=== PATIENT | female | born 1950 | race Two or more races ===

== ENCOUNTER 2018-12-22 06:28 | Inpatient (IN) | payer MEDICARE, MEDICAID ==
[~2018-12-22] VITALS: Ht 157.5 cm; Wt 48.1 kg
[~2018-12-22 06:28] MED LIST: AMLO10TA8 PO; ASPI81TA45 PO; BENZ-17 PO; CHOL500062 PO; FAMO20TA7 PO; GLUC1TAB27 PO; LISI40TA PO; OMEP40CA6 PO; POTA10TA5 PO
[2018-12-22] MEDS ORDERED: FUROSEMIDE 40 MG/4 ML IVP ONE (06:30)
[2018-12-22] MEDS ORDERED: SODIUM CHLORIDE FLUSH 10ML SYR IVF ONE (06:30)
[2018-12-22] MEDS ORDERED: LORazepam 2 MG/ML, 1ML ONE ×2 (06:34→06:44)
[2018-12-22] MEDS ORDERED: CARV-39 PO (06:40)
[2018-12-22] MEDS ORDERED: HYDR-3343 PO (06:40)
[2018-12-22] MEDS ORDERED: insulin (06:40)
[2018-12-22] MEDS ORDERED: CLOP75TA PO (06:40)
[2018-12-22] MEDS ORDERED: FURO-93 PO (06:40)
[2018-12-22] MEDS ORDERED: ASPI-515 PO (06:40)
[2018-12-22] MEDS ORDERED: ROSU40TA PO (06:40)
[2018-12-22] MEDS ORDERED: MAGN400T7 PO (06:40)
[2018-12-22] MEDS ORDERED: PLEASE ENTER ALLERGIES MC SCH (07:00)
[2018-12-22] MEDS ORDERED: FUROSEMIDE 40 MG/4 ML IV ONE (07:00)
[2018-12-22] MEDS ORDERED: NITROGLYCERIN/D5W PMX 250 ML IV PRN (07:00)
[2018-12-22] MEDS ORDERED: LORazepam 2 MG/ML, 1ML IVPush ONE (07:00)
--- NOTE | 2018-12-22 07:01 | NUR ---
ASSUME CARE, PT CURRENTLY SITTING UP ON CPAP, RESPIRATIONS SLOWING DOWN, BP IMPROVING, PT HAD SEVERE RESPIRTORY DISTRESS ON ARRIVAL. PER HOLD NITRO DRIP WILL ADMINISTER LASIX. RT AT BEDSIDE
[2018-12-22] MEDS ORDERED: FUROSEMIDE 40 MG/4 ML ONE (07:04)
[2018-12-22 07:05] LABS: BASOPHILS # (AUTO) 0.03 x10^3/uL (0-0.1); BASOPHILS % (AUTO) 0 % (0-1); EOSINOPHILS # (AUTO) 0.05 x10^3/uL (0-0.4); EOSINOPHILS % (AUTO) 1 % (1-7); LYMPHOCYTES # (AUTO) 2.57 x10^3/uL (1-3.4); LYMPHOCYTES % (AUTO) 31 % (22-44); MD NO; MEAN CORPUSCULAR HEMOGLOBIN 30.7 pg (27.0-34.8); MEAN CORPUSCULAR HGB CONC 33.4 g/dL (32.4-35.8); MEAN CORPUSCULAR VOLUME 91.9 fL (80-100); MEAN PLATELET VOLUME 9.8 fL (7.4-10.4); MONOCYTES # (AUTO) 0.32 x10^3/uL (0.2-0.8); MONOCYTES % (AUTO) 4 % (2-9); NEUTROPHILS # (AUTO) 5.24 x10^3/uL (1.8-6.8); NEUTROPHILS % (AUTO) 64 % (42-75); PLATELET COUNT 289 x10^3/uL (130-400); RED BLOOD COUNT 3.27 x10^6/uL (3.82-5.3); RED CELL DISTRIBUTION WIDTH 17.5 % (9.6-15.2)
[2018-12-22 07:07] LABS: ALANINE AMINOTRANSFERASE 70 U/L (12-78); ALBUMIN 3.1 g/dL (3.4-5.0); ANION GAP 8 mmol/L (5-15); CALCIUM 8.3 mg/dL (8.5-10.1); CHLORIDE 105 mmol/L (98-107); CREATININE 3.21 mg/dL (0.55-1.02); INTERNATIONAL NORMALIZED RATIO 1.08 (0.93-1.1); PROTHROMBIN TIME 11.3 Seconds (9.6-11.5)
[2018-12-22 07:12] LABS: ALKALINE PHOSPHATASE 153 U/L (45-117); BILIRUBIN,TOTAL 0.1 mg/dL (0.2-1.0); TOTAL PROTEIN 7.7 g/dL (6.4-8.2)
--- NOTE | 2018-12-22 08:23 | NUR ---
f/c inserted to gravity, yellow light urine draining, pt cont to improve with their resp rate
--- NOTE | 2018-12-22 12:04 | NUR ---
Task RN - Pt resting on gurney. Tollerating CPAP at this time. CP monitors remain in place. Siderails up x 2. Call light in reach. Family at bedside. All concerns adressed.
[2018-12-22] MEDS ORDERED: HEPARIN 5,000 UNITS/ML, 1ML IV ONE (15:30)
[2018-12-22] MEDS ORDERED: ACETAMINOPHEN 325 MG TABLET PO PRN (15:30)
[2018-12-22] MEDS ORDERED: morphine SULFATE 10 MG/ML, 1ML IVPush PRN (15:30)
[2018-12-22] MEDS ORDERED: NITROGLYCERIN 0.4 MG BOTTLE (25 TABS) SL PRN (15:30)
[2018-12-22] MEDS ORDERED: ONDANSETRON 2MG/ML, 2ML IVPush PRN (15:30)
[2018-12-22] MEDS: FUROSEMIDE 40 MG/4 ML IV SCH (15:59)
[2018-12-22] MEDS: HEPARIN 25,000 UNITS/500ML PMX 500 ML IV PRN (16:06)
[2018-12-22] MEDS ORDERED: ISOS60TA36 PO (16:14)
[2018-12-22] MEDS ORDERED: INSU100I18 SQ-INSULIN (16:21)
[2018-12-22] MEDS ORDERED: INSU100I13 SQ-INSULIN (16:21)
[2018-12-22] MEDS ORDERED: ALBUTEROL SULFATE 2.5 MG/3 ML NPPB PRN (17:30)
[2018-12-22 18:46] LABS: MICROSCOPIC AUTO
[2018-12-22 18:48] LABS: CULTURE INDICATED? NO
[2018-12-22 18:50] LABS: CHLORIDE,URINE RANDOM 113 mmol/L; POTASSIUM,URINE RANDOM 23 mmol/L; SODIUM,URINE RANDOM 112 mmol/L
[2018-12-22] MEDS: CARVEDILOL 25 MG TABLET PO SCH (20:25)
[2018-12-22] MEDS: (Rosuvastatin Calcium** (Crestor**) 40 MG) PO SCH (21:00)
[2018-12-22] MEDS: HEPARIN 5,000 UNITS/ML, 1ML IV PRN (22:53)
[2018-12-23 04:00] VITALS: BP 119/43
[2018-12-23 05:27] LABS: BASOPHILS # (AUTO) 0.04 x10^3/uL (0-0.1); BASOPHILS % (AUTO) 1 % (0-1); EOSINOPHILS # (AUTO) 0.17 x10^3/uL (0-0.4); EOSINOPHILS % (AUTO) 2 % (1-7); LYMPHOCYTES # (AUTO) 3.44 x10^3/uL (1-3.4); LYMPHOCYTES % (AUTO) 49 % (22-44); MD NO; MEAN CORPUSCULAR HEMOGLOBIN 30.8 pg (27.0-34.8); MEAN CORPUSCULAR HGB CONC 33.2 g/dL (32.4-35.8); MEAN CORPUSCULAR VOLUME 92.7 fL (80-100); MONOCYTES % (AUTO) 8 % (2-9); NEUTROPHILS # (AUTO) 2.85 x10^3/uL (1.8-6.8); NEUTROPHILS % (AUTO) 40 % (42-75); PLATELET COUNT 229 x10^3/uL (130-400); RED BLOOD COUNT 2.67 x10^6/uL (3.82-5.3); RED CELL DISTRIBUTION WIDTH 17.4 % (9.6-15.2)
[2018-12-23 05:34] LABS: CHLORIDE 107 mmol/L (98-107)
[2018-12-23 05:44] LABS: ALANINE AMINOTRANSFERASE 50 U/L (12-78); ALBUMIN 2.6 g/dL (3.4-5.0); ALKALINE PHOSPHATASE 92 U/L (45-117); ANION GAP 7 mmol/L (5-15); BILIRUBIN,TOTAL 0.3 mg/dL (0.2-1.0); CALCIUM 8.2 mg/dL (8.5-10.1); CHOL/HDL RATIO 2.6; CHOLESTEROL, TOTAL 138 mg/dL (140-239); CREATININE 2.81 mg/dL (0.55-1.02); HDL CHOL % 39 % (28-40); HDL CHOLESTEROL (DIRECT) 54 mg/dL (40-60); LDL CHOLESTEROL,CALCULATED 57 mg/dL (54-169); TOTAL PROTEIN 6.2 g/dL (6.4-8.2); TRIGLYCERIDES 137 mg/dL (50-200); VLDL CHOLESTEROL 27 mg/dL (0-25)
[2018-12-23 05:45] LABS: LDL/HDL RATIO 1.1 (0.5-3.0); THYROID STIMULATING HORMONE 0.645 mIU/L (0.358-3.740)
[2018-12-23] MEDS ORDERED: POTASSIUM CHLORIDE 40 MEQ in SODIUM CHLORIDE 0.9% 500 ML IV ONE (07:00)
[2018-12-23] MEDS: FUROSEMIDE 40 MG/4 ML IV SCH ×2 (07:17→17:56)
[2018-12-23] MEDS: MAGNESIUM OXIDE 400 MG TABLET PO SCH (07:51)
[2018-12-23] MEDS: ASPIRIN 81 MG TABLET EC PO SCH (07:51)
[2018-12-23] MEDS: CARVEDILOL 25 MG TABLET PO SCH ×2 (07:51→20:36)
[2018-12-23] MEDS: CLOPIDOGREL 75 MG TABLET PO SCH (07:52)
[2018-12-23] MEDS ORDERED: AMLODIPINE 10 MG TAB PO SCH (09:00)
[2018-12-23] MEDS ORDERED: ISOSORBIDE MONONITRATE ER 30 MG TABLET PO SCH (11:00)
[2018-12-23] MEDS ORDERED: DEXTROSE 4 GM TAB.CHEW PO PRN (12:00)
[2018-12-23] MEDS ORDERED: GLUCAGON 1 MG IM PRN (12:00)
[2018-12-23] MEDS ORDERED: DEXTROSE 50%, 50ML SYRINGE IVPush PRN (12:00)
[2018-12-23 12:13] VITALS: BP 115/65
[2018-12-23 17:55] VITALS: BP 110/55
[2018-12-23] MEDS: POTASSIUM CHLORIDE 20 MEQ TAB.ER.PRT PO SCH ×2 (17:56→17:57)
[2018-12-23] MEDS: INSULIN LISPRO 100 UNITS/ML, PEN SQ-INSULIN SCH ×2 (17:57→20:37)
[2018-12-23 18:39] VITALS: BP 104/60
[2018-12-23] MEDS: SODIUM CHLORIDE FLUSH 10ML SYR IVF SCH (20:37)
[2018-12-23] MEDS: (Rosuvastatin Calcium** (Crestor**) 40 MG) PO SCH (20:37)
[2018-12-23] MEDS: HEPARIN 25,000 UNITS/500ML PMX 500 ML IV PRN (22:31)
[2018-12-24 00:48] VITALS: BP 123/66
[2018-12-24 05:52] LABS: BASOPHILS # (AUTO) 0.04 x10^3/uL (0-0.1); BASOPHILS % (AUTO) 1 % (0-1); EOSINOPHILS # (AUTO) 0.11 x10^3/uL (0-0.4); EOSINOPHILS % (AUTO) 1 % (1-7); LYMPHOCYTES # (AUTO) 3.71 x10^3/uL (1-3.4); LYMPHOCYTES % (AUTO) 45 % (22-44); MD NO; MEAN CORPUSCULAR HEMOGLOBIN 31.1 pg (27.0-34.8); MEAN CORPUSCULAR HGB CONC 34.1 g/dL (32.4-35.8); MEAN CORPUSCULAR VOLUME 91.3 fL (80-100); MEAN PLATELET VOLUME 10.4 fL (7.4-10.4); MONOCYTES # (AUTO) 0.57 x10^3/uL (0.2-0.8); MONOCYTES % (AUTO) 7 % (2-9); NEUTROPHILS # (AUTO) 3.75 x10^3/uL (1.8-6.8); NEUTROPHILS % (AUTO) 46 % (42-75); PLATELET COUNT 231 x10^3/uL (130-400); RED BLOOD COUNT 2.77 x10^6/uL (3.82-5.3); RED CELL DISTRIBUTION WIDTH 17.4 % (9.6-15.2)
[2018-12-24 05:57] LABS: CHLORIDE 105 mmol/L (98-107)
[2018-12-24 06:02] LABS: ANION GAP 7 mmol/L (5-15); CALCIUM 8.6 mg/dL (8.5-10.1); CREATININE 2.82 mg/dL (0.55-1.02)
[2018-12-24 06:20] LABS: HEMOGLOBIN A1C 7.1 % (4.2-6.3)
[2018-12-24] MEDS: HEPARIN 5,000 UNITS/ML, 1ML IV PRN (06:31)
[2018-12-24 08:05] VITALS: BP 112/67
[2018-12-24] MEDS: INSULIN LISPRO 100 UNITS/ML, PEN SQ-INSULIN SCH ×4 (08:22→21:28)
[2018-12-24] MEDS: FUROSEMIDE 40 MG/4 ML IV SCH ×2 (08:22→17:36)
[2018-12-24] MEDS: CLOPIDOGREL 75 MG TABLET PO SCH (08:23)
[2018-12-24] MEDS: ISOSORBIDE MONONITRATE ER 30 MG TABLET PO SCH (08:23)
[2018-12-24] MEDS: ASPIRIN 81 MG TABLET EC PO SCH (08:23)
[2018-12-24] MEDS: CARVEDILOL 25 MG TABLET PO SCH ×2 (08:23→21:27)
[2018-12-24] MEDS: SODIUM CHLORIDE FLUSH 10ML SYR IVF SCH ×2 (08:24→21:28)
[2018-12-24] MEDS: MAGNESIUM OXIDE 400 MG TABLET PO SCH (08:24)
[2018-12-24] MEDS: POTASSIUM CHLORIDE 20 MEQ TAB.ER.PRT PO SCH ×2 (08:24→17:37)
[2018-12-24 13:45] VITALS: BP 101/56
[2018-12-24 20:19] VITALS: BP 126/68
[2018-12-24] MEDS: (Rosuvastatin Calcium** (Crestor**) 40 MG) PO SCH (21:21)
[2018-12-25 00:05] VITALS: BP 116/62
[2018-12-25 07:05] VITALS: BP 118/65
[2018-12-25] MEDS: INSULIN LISPRO 100 UNITS/ML, PEN SQ-INSULIN SCH ×4 (07:50→21:21)
[2018-12-25] MEDS: FUROSEMIDE 40 MG/4 ML IV SCH ×2 (07:50→16:32)
[2018-12-25] MEDS: CLOPIDOGREL 75 MG TABLET PO SCH (07:50)
[2018-12-25] MEDS: MAGNESIUM OXIDE 400 MG TABLET PO SCH (07:51)
[2018-12-25] MEDS: POTASSIUM CHLORIDE 20 MEQ TAB.ER.PRT PO SCH ×2 (07:51→16:32)
[2018-12-25] MEDS: CARVEDILOL 25 MG TABLET PO SCH ×2 (07:51→21:13)
[2018-12-25] MEDS: ASPIRIN 81 MG TABLET EC PO SCH (07:51)
[2018-12-25] MEDS: SODIUM CHLORIDE FLUSH 10ML SYR IVF SCH ×2 (07:51→21:13)
[2018-12-25] MEDS: ISOSORBIDE MONONITRATE ER 30 MG TABLET PO SCH (07:56)
[2018-12-25 09:07] LABS: ANION GAP 7 mmol/L (5-15); CALCIUM 8.8 mg/dL (8.5-10.1); CHLORIDE 104 mmol/L (98-107); CREATININE 3.11 mg/dL (0.55-1.02)
[2018-12-25 09:27] LABS: MEAN CORPUSCULAR HEMOGLOBIN 31.1 pg (27.0-34.8); MEAN CORPUSCULAR HGB CONC 33.7 g/dL (32.4-35.8); MEAN CORPUSCULAR VOLUME 92.3 fL (80-100); PLATELET COUNT 236 x10^3/uL (130-400); RED BLOOD COUNT 2.72 x10^6/uL (3.82-5.3); RED CELL DISTRIBUTION WIDTH 17.6 % (9.6-15.2)
[2018-12-25 10:27] LABS: BASOPHILS # (AUTO) 0.02 x10^3/uL (0-0.1); BASOPHILS % (AUTO) 1 % (0-1); EOSINOPHILS # (AUTO) 0.11 x10^3/uL (0-0.4); EOSINOPHILS % (AUTO) 2 % (1-7); LYMPHOCYTES # (AUTO) 2.06 x10^3/uL (1-3.4); LYMPHOCYTES % (AUTO) 42 % (22-44); MD SCAN; MONOCYTES # (AUTO) 0.42 x10^3/uL (0.2-0.8); MONOCYTES % (AUTO) 9 % (2-9); NEUTROPHILS % (AUTO) 47 % (42-75)
[2018-12-25 12:25] VITALS: BP 121/61
[2018-12-25 18:59] VITALS: BP 106/64
[2018-12-25] MEDS: (Rosuvastatin Calcium** (Crestor**) 40 MG) PO SCH (21:00)
[2018-12-25 21:12] VITALS: BP 109/69
[2018-12-26 00:37] VITALS: BP 104/56
[2018-12-26] MEDS: ASPIRIN 81 MG TABLET EC PO SCH (07:37)
[2018-12-26] MEDS: POTASSIUM CHLORIDE 20 MEQ TAB.ER.PRT PO SCH (07:37)
[2018-12-26] MEDS: CLOPIDOGREL 75 MG TABLET PO SCH (07:37)
[2018-12-26] MEDS: ISOSORBIDE MONONITRATE ER 30 MG TABLET PO SCH (07:37)
[2018-12-26] MEDS: MAGNESIUM OXIDE 400 MG TABLET PO SCH (07:37)
[2018-12-26] MEDS: FUROSEMIDE 40 MG/4 ML IV SCH (07:37)
[2018-12-26] MEDS: SODIUM CHLORIDE FLUSH 10ML SYR IVF SCH (07:38)
[2018-12-26] MEDS: CARVEDILOL 25 MG TABLET PO SCH (07:44)
[2018-12-26 07:47] VITALS: BP 120/81
[2018-12-26] MEDS: INSULIN LISPRO 100 UNITS/ML, PEN SQ-INSULIN SCH ×2 (07:47→11:37)
[2018-12-26] MEDS ORDERED: INSU100I11 SQ-INSULIN (12:04)
[2018-12-26] MEDS ORDERED: ROSU40TA PO (12:04)
[2018-12-26] MEDS ORDERED: CLOP75TA PO (12:04)
[2018-12-26] MEDS ORDERED: MAGN400T7 PO (12:04)
[2018-12-26] MEDS ORDERED: HYDR-3343 PO (12:04)
[2018-12-26] MEDS ORDERED: FURO-92 PO (12:04)
[2018-12-26] MEDS ORDERED: POTA20TA6 PO (12:04)
[2018-12-26] MEDS ORDERED: NITR0.4T SL (12:04)
[2018-12-26] MEDS ORDERED: CARV-39 PO (12:04)
[2018-12-26] MEDS ORDERED: ISOS30TA8 PO (12:04)
[2018-12-26] MEDS ORDERED: ASPI-515 PO (12:04)
== END 2018-12-26 16:05 | disposition home or self-care (01) | DRG 280 ==
LOC: EDBD 06:28 → ED 07:09 → EDIP 07:10 → MERGE 07:37 → ED 07:37 → CCU 13:15 → 5SO 12-23 11:56 → DCLOUNGE 12-26 15:40
PROVIDERS: ADMIT Internal Medicine; ATTEND Internal Medicine
DX: I21.A1 Myocardial infarction type 2 (principal); J96.01 Acute respiratory failure with hypoxia; N17.0 Acute kidney failure with tubular necrosis; I50.43 Acute on chronic combined systolic (congestive) and diastolic (congestive) heart failure; J96.02 Acute respiratory failure with hypercapnia; N18.4 Chronic kidney disease, stage 4 (severe); I13.0 Hypertensive heart and chronic kidney disease with heart failure and stage 1 through stage 4 chronic kidney disease, or unspecified chronic kidney disease; N17.9 Acute kidney failure, unspecified; I25.110 Atherosclerotic heart disease of native coronary artery with unstable angina pectoris; E78.5 Hyperlipidemia, unspecified; Z95.5 Presence of coronary angioplasty implant and graft; Z79.899 Other long term (current) drug therapy; Z87.891 Personal history of nicotine dependence; Z79.82 Long term (current) use of aspirin; Z79.02 Long term (current) use of antithrombotics/antiplatelets; E11.22 Type 2 diabetes mellitus with diabetic chronic kidney disease; D63.8 Anemia in other chronic diseases classified elsewhere; Z79.4 Long term (current) use of insulin; Z51.5 Encounter for palliative care; K21.9 Gastro-esophageal reflux disease without esophagitis; I34.0 Nonrheumatic mitral (valve) insufficiency; E11.21 Type 2 diabetes mellitus with diabetic nephropathy
CPT/HCPCS: 36415; 36600; 51702; 71045; 76770; 80048; 80053; 80061; 81001; 82436; 82803; 82962; 83036; 83605; 83735; 83880; 84100; 84133; 84145; 84300; 84443; 84484; 85018; 85025; 85520; 85610; 85730; 87081; 93005; 93306; 94660; 96374; 96375; 99291; G0378; J1644; J1940; J3480; J1815; J2060; J7040